=== PATIENT | female | born 1985 | race African-American/Black ===

== ENCOUNTER 2019-04-08 07:51 | Emergency (ER) | payer MEDICAID ==
[~2019-04-08] VITALS: Ht 167.6 cm; Wt 88.5 kg
[2019-04-08 07:58] VITALS: BP 139/89
[2019-04-08] MEDS ORDERED: IPRATROPIUM BROM 0.5 MG/2.5ML INH SOL NEB ONE (08:45)
[2019-04-08] MEDS ORDERED: ALBUTEROL SULF 2.5 MG/0.5ML(0.5%) NEB SOLN NEB ONE (08:45)
== END 2019-04-08 09:37 | disposition home or self-care (01) ==
LOC: ER 07:51
DX: J02.9 Acute pharyngitis, unspecified (principal); R04.0 Epistaxis; Z90.49 Acquired absence of other specified parts of digestive tract
CPT/HCPCS: 71046; 94640; 99283; J7611; J7644

== ENCOUNTER 2019-10-22 11:18 | Emergency (ER) | payer MEDICAID, OTHER ==
[~2019-10-22] VITALS: Ht 172.7 cm; Wt 83.9 kg
[2019-10-22 11:44] LABS: Basophils # (auto) 0 uL; Basophils % (auto) 0.6 % (0.0-2.0); Eosinophils # (auto) 0.1 uL; Eosinophils % (auto) 1.5 % (0.0-7.0); Hematocrit 43.2 % (36.0-46.0); Hemoglobin 14.4 g/dL (12.2-16.2); Lymphocytes # (auto) 1.4 uL; Lymphocytes % (auto) 16.1 % (10.0-50.0); Mean Corpuscular Hemoglobin 28.5 pg (28.0-32.0); Mean Corpuscular Hgb Conc. 33.3 g/dL (32.0-36.0); Mean Corpuscular Volume 85.7 fL (80.0-100.0); Monocytes # (auto) 0.7 uL; Monocytes % (auto) 8.6 % (0.0-12.0); Neutrophils # (auto) 6.1 uL; Neutrophils % (auto) 73.2 % (37.0-80.0); Platelet Count (auto) 232 10^3/uL (140-450); Red Blood Cells 5.04 10^6/uL (4.0-5.20); Red Cell Distribution Width 13.6 % (11.8-14.3); White Blood Cell 8.4 10^3/uL (4.4-10.8)
[2019-10-22 11:49] LABS: Urine Bacteria NONE SEEN /hpf (None Seen); Urine Blood 2+ /uL (Negative); Urine Mucus FEW (None Seen); Urine Specific Gravity 1.022 (1.001-1.035); Urine WBC <1 /hpf (0 - 5)
[2019-10-22 11:57] LABS: Potassium 3.9 mmol/L (3.5-5.1)
[2019-10-22 12:07] LABS: Albumin 3.8 g/dL (3.4-5.0); Calcium 8.7 mg/dL (8.5-10.1); Total Protein 7.8 g/dL (6.4-8.2)
[2019-10-22] MEDS ORDERED: SODIUM CHLORIDE 0.9% 1,000 ML IVB ONE (13:28)
[2019-10-22] MEDS ORDERED: PROMETHAZINE HCL 25 MG/ML 1ML IV PRN (13:30)
[2019-10-22 16:00] VITALS: BP 95/55
== END 2019-10-22 16:08 | disposition home or self-care (01) ==
LOC: ER 11:18
DX: O20.8 Other hemorrhage in early pregnancy (principal); Z3A.18 18 weeks gestation of pregnancy
CPT/HCPCS: 36415; 76801; 80053; 81001; 84702; 85025; 99284; J2550; J7030

== ENCOUNTER 2021-06-17 18:59 | Emergency (ER) | payer MEDICAID, OTHER ==
[~2021-06-17] VITALS: Ht 167.6 cm; Wt 71.2 kg
[2021-06-17] MEDS ORDERED: ONDANSETRON ODT 4 MG TAB PO ONE (19:15)
[2021-06-17] MEDS ORDERED: HYDROcodone-ACET 10/325MG TAB PO ONE (19:15)
[2021-06-17 21:20] VITALS: BP 107/68
== END 2021-06-17 21:25 | disposition home or self-care (01) ==
LOC: ER 18:59
DX: K45.8 Other specified abdominal hernia without obstruction or gangrene (principal); M48.061 Spinal stenosis, lumbar region without neurogenic claudication; Z90.49 Acquired absence of other specified parts of digestive tract
CPT/HCPCS: 72128; 72131; 99285; Q0162